=== PATIENT | female | born 1950 | race Caucasian/White ===

== ENCOUNTER → 2017-02-01 | Outpatient (CLI) | payer MEDICARE ==
--- NOTE | 2017-02-04 08:42 | MM ---
Reason for exam: screening (asymptomatic). Last mammogram was performed 1 year ago. History: Patient is postmenopausal and is nulliparous. Family history of breast cancer in paternal grandmother at age 55. Took hormonal contraceptives for 10 years beginning at age 17. Took estrogen for 4 years beginning at age 51. Took progesterone for 4 years beginning at age 51. Physical Findings: A clinical breast exam by your physician is recommended on an annual basis and results should be correlated with mammographic findings. MG 3D Screening Mammo W/Cad Bilateral CC and MLO view(s) were taken. Prior study comparison: January 30, 2016, bilateral MG 3d screening mammo w/cad. January 18, 2015, bilateral MG screening mammo w CAD. The breast tissue is heterogeneously dense. This may lower the sensitivity of mammography. No significant changes when compared with prior studies. ASSESSMENT: Benign, BI-RAD 2 RECOMMENDATION: Routine screening mammogram of both breasts in 1 year.
== END | disposition home or self-care (01) ==
LOC: RADMAMWWP 10:47
PROVIDERS: ATTEND Internal Medicine Geriatric Medicine
DX: Z12.31 Encounter for screening mammogram for malignant neoplasm of breast (principal)
CPT/HCPCS: 77063; G0202

== ENCOUNTER → 2017-09-05 | Outpatient (CLI) | payer MEDICARE ==
--- NOTE | 2017-09-05 18:33 | P.STRESS ---
- Stress Test Note Stress Test Results/Findings: Exam Performed: stress echo exercise Exam Date: 09/05/17 Reason for Exam: Chest Pain Height: 5 ft 9 in Weight: 77.111 kg Protocol: Echo Hunter Stage: 3 Duration of Exercise: 9:00 Resting Heart Rate: 64 Resting Blood Pressure: 128/79 Maximum Achieved Heart Rate: 129 Maximum Achieved Blood Pressure: 166/96 85% PMHR: 69 100% PMHR: 170 METS: 9.3 Technologist Comment: Stress Test Results/Findings: This is a 66-year-old female with history of hypertension, family history of ischemic heart disease being evaluated for symptoms of chest pain and shortness of breath. Stress data: Baseline EKG showed sinus rhythm with normal NV interval and QRS duration. Blood pressure at rest is 128/79, pulse rate of 64. Patient walked on the Hunter protocol for 9 minutes achieving a maximal heart rate of 129 with a blood pressure 166/96. EKGs taken during and after the the exercise did not reveal any changes to suggest ischemia. Echo data: Baseline echo images show normal wall motion and thickening. Exercise echo images showed augmentation of wall motion and thickening in all the segments. Final impression: #1. Negative stress test #2. Negative stress echo. #3. Patient did not experience any chest pain. #4. Occasional PVCs noticed
--- NOTE | 2017-09-09 15:41 | ECHOS ---
Stress Test Results/Findings: Exam Performed: stress echo exercise Exam Date: 09/05/17 Reason for Exam: Chest Pain Height: 5 ft 9 in Weight: 77.111 kg Protocol: Echo Hunter Stage: 3 Duration of Exercise: 9:00 Resting Heart Rate: 64 Resting Blood Pressure: 128/79 Maximum Achieved Heart Rate: 129 Maximum Achieved Blood Pressure: 166/96 85% PMHR: 69 100% PMHR: 170 METS: 9.3 Technologist Comment: Stress Test Results/Findings: This is a 66-year-old female with history of hypertension, family history of ischemic heart disease being evaluated for symptoms of chest pain and shortness of breath. Stress data: Baseline EKG showed sinus rhythm with normal VT interval and QRS duration. Blood pressure at rest is 128/79, pulse rate of 64. Patient walked on the Hunter protocol for 9 minutes achieving a maximal heart rate of 129 with a blood pressure 166/96. EKGs taken during and after the the exercise did not reveal any changes to suggest ischemia. Echo data: Baseline echo images show normal wall motion and thickening. Exercise echo images showed augmentation of wall motion and thickening in all the segments. Final impression: #1. Negative stress test #2. Negative stress echo. #3. Patient did not experience any chest pain. #4. Occasional PVCs noticed MTDD
== END | disposition home or self-care (01) ==
LOC: RADNMMAIN 09:00
PROVIDERS: ATTEND Internal Medicine Geriatric Medicine
DX: R07.9 Chest pain, unspecified (principal)
CPT/HCPCS: 93351

== ENCOUNTER → 2018-03-05 | Outpatient (CLI) | payer MEDICARE ==
--- NOTE | 2018-03-05 14:38 | BD ---
EXAMINATION TYPE: Axial Bone Density DATE OF EXAM: 03/05/2018 COMPARISON: NONE CLINICAL HISTORY: Osteoporosis per order. Postmenopausal female. Height: 5 FT 8 IN Weight: 183 FRAX RISK QUESTIONS: RISK FACTORS HISTORY OF: Surgery to Spine/Hip(right/left)/Wrist (right/left): LUMBAR FUSION When: 2016 Active: YES Postmenopausal woman: AGE 51 Take estrogen and/or progesterone medications: PT STATES SHE TOOK HRT FOR 7 YEARS NO LONGER TAKES MEDICATIONS: Additional Medications: LOSARTAN, MOTRIN, GABAPENTIN, CELEXA , Additional History: EXAM MEASUREMENTS: Bone mineral density about the R hip (g/cm2): 0.932 Bone mineral density about the L hip (g/cm2): 0.974 T Score values are as follows: -----R Neck: -0.8 -----L Neck: -0.5 -----R Total: -0.4 -----L Total: -0.5 NO PREV HERE Bone mineral density about the L Wrist (g/cm2): 0.725 T Score values are as follows: -----Dist. R+U: 0.4 -----Prox. R+U: 0.8 -----Radius total: 0.8 NO PREV HERE IMPRESSION: Normal (Values between +1 and -1 indicate normal bone mass). Consider repeating this study in 5 year s or sooner if there is some new clinical indication. NOTE: T-SCORE=SD OF THE YOUNG ADULT MEAN.
--- NOTE | 2018-03-06 12:53 | MM ---
Reason for exam: screening (asymptomatic). Last mammogram was performed 1 year and 1 month ago. History: Patient is postmenopausal and is nulliparous. Family history of breast cancer in paternal grandmother at age 55. Took hormonal contraceptives for 10 years beginning at age 17. Took estrogen for 4 years beginning at age 51. Took progesterone for 4 years beginning at age 51. Physical Findings: A clinical breast exam by your physician is recommended on an annual basis and results should be correlated with mammographic findings. MG 3D Screening Mammo W/Cad Bilateral CC, MLO, and XCCL view(s) were taken. Prior study comparison: February 01, 2017, bilateral MG 3d screening mammo w/cad. January 30, 2016, bilateral MG 3d screening mammo w/cad. The breast tissue is extremely dense which could obscure a lesion on mammography. Stable benign calcifications. There is chronic nodularity bilaterally. There is no dominant lesion. No significant changes when compared with prior studies. ASSESSMENT: Benign, BI-RAD 2 RECOMMENDATION: Routine screening mammogram of both breasts in 1 year.
== END | disposition home or self-care (01) ==
LOC: RADMAMWWP 13:19
PROVIDERS: ATTEND Internal Medicine Geriatric Medicine
DX: Z12.31 Encounter for screening mammogram for malignant neoplasm of breast (principal); Z13.820 Encounter for screening for osteoporosis
CPT/HCPCS: 77063; 77067; 77080

== ENCOUNTER → 2019-03-21 | Outpatient (CLI) | payer MEDICARE ==
--- NOTE | 2019-03-24 11:28 | MM ---
Reason for exam: screening (asymptomatic). Last mammogram was performed 1 year and 1 month ago. History: Patient is postmenopausal and is nulliparous. Family history of breast cancer in paternal grandmother at age 55. Took hormonal contraceptives for 10 years beginning at age 17. Took estrogen for 4 years beginning at age 51. Took progesterone for 4 years beginning at age 51. Physical Findings: A clinical breast exam by your physician is recommended on an annual basis and results should be correlated with mammographic findings. MG 3D Screening Mammo W/Cad Bilateral CC and MLO view(s) were taken. XCCL view(s) were taken of the right breast. Prior study comparison: March 05, 2018, bilateral MG 3d screening mammo w/cad. February 01, 2017, bilateral MG 3d screening mammo w/cad. The breast tissue is heterogeneously dense. This may lower the sensitivity of mammography. Very dense breast tissues versus underlying nodularity medial right breast also seen on the XCCL ASSISTANT REAL ESTATE MANAGER view. ASSESSMENT: Incomplete: need additional imaging evaluation, BI-RAD 0 RECOMMENDATION: Ultrasound of the right breast. [facility] will attempt to contact patient to return for ultrasound.
== END | disposition home or self-care (01) ==
LOC: RADMAMWWP 11:13
PROVIDERS: ATTEND Internal Medicine Geriatric Medicine
DX: Z12.31 Encounter for screening mammogram for malignant neoplasm of breast (principal)
CPT/HCPCS: 77063; 77067

== ENCOUNTER → 2019-03-27 | Outpatient (CLI) | payer MEDICARE ==
--- NOTE | 2019-03-27 09:24 | USB ---
Reason for exam: additional evaluation requested from abnormal screening. History: Patient is postmenopausal and is nulliparous. Family history of breast cancer in paternal grandmother at age 55. Took hormonal contraceptives for 10 years beginning at age 17. Took estrogen for 4 years beginning at age 51. Took progesterone for 4 years beginning at age 51. Physical Findings: Nurse did not find any significant physical abnormalities on exam. US Breast Workup Limited RT Right limited breast ultrasound including focal area of concern, retroareolar and axilla demonstrates no cystic or solid lesion seen. These results were verbally communicated with the patient and result sheet given to the patient on 03/27/19. ASSESSMENT: Negative, BI-RAD 1 RECOMMENDATION: Return to routine screening mammogram schedule for both breasts.
== END | disposition home or self-care (01) ==
LOC: RADUSWWP 08:23
PROVIDERS: ATTEND Internal Medicine Geriatric Medicine
DX: R92.8 Other abnormal and inconclusive findings on diagnostic imaging of breast (principal)

== ENCOUNTER → 2020-08-04 | Outpatient (CLI) | payer MEDICARE ==
--- NOTE | 2020-08-08 08:59 | MM ---
Reason for exam: screening (asymptomatic). Last mammogram was performed 1 year and 5 months ago. History: Patient is postmenopausal and is nulliparous. Family history of breast cancer in paternal grandmother at age 55. Took hormonal contraceptives for 10 years beginning at age 17. Took estrogen for 4 years beginning at age 51. Took progesterone for 4 years beginning at age 51. Physical Findings: A clinical breast exam by your physician is recommended on an annual basis and results should be correlated with mammographic findings. MG 3D Screening Mammo W/Cad Bilateral CC and MLO view(s) were taken. Prior study comparison: March 21, 2019, bilateral MG 3d screening mammo w/cad. March 05, 2018, bilateral MG 3d screening mammo w/cad. The breast tissue is extremely dense which could obscure a lesion on mammography. Stable benign calcifications. There is no discrete abnormality. No significant changes when compared with prior studies. ASSESSMENT: Benign, BI-RAD 2 RECOMMENDATION: Routine screening mammogram of both breasts in 1 year.
== END | disposition home or self-care (01) ==
LOC: RADMAMWWP 09:49
PROVIDERS: ATTEND Internal Medicine Geriatric Medicine
DX: Z12.31 Encounter for screening mammogram for malignant neoplasm of breast (principal); Z78.0 Asymptomatic menopausal state; Z80.3 Family history of malignant neoplasm of breast
CPT/HCPCS: 77063; 77067

== ENCOUNTER → 2021-07-31 | Outpatient (CLI) | payer MEDICARE ==
[2021-07-31 15:16] LABS: INR 0.9 (<1.2); Partial Thromboplastin Time 25.4 sec (22.0-30.0); Prothrombin Time 10.1 sec (9.0-12.0)
[2021-07-31 18:28] LABS: HCT 41.7 % (37.2-46.3); HGB 14.3 g/dL (12.0-15.0); MCHC 34.3 g/dL (32.0-37.0); MCV 90.5 fL (80.0-97.0); Mean Platelet Volume 9.5 fL (9.5-12.2); NRBC Per 100 WBC 0 /100 WBCS (0.0-0.0); Platelet Count 339 X 10*3/uL (140-440); RBC 4.61 X 10*6/uL (4.10-5.20); RDW 13.5 % (11.5-14.5); WBC 9.36 X 10*3/uL (4.50-10.00)
[2021-07-31 18:35] LABS: African American GFR (CKD) 101.4 (60.0-200.0); Albumin 4.7 g/dL (3.8-4.9); Albumin/Globulin Ratio 1.99 (1.60-3.17); Anion Gap 9.9 mmol/L (10.00-18.00); BUN/Creat Ratio 21.5 Ratio (12.00-20.00); Blood Urea Nitrogen 14.9 mg/dL (9.0-27.0); Calcium 9.8 mg/dL (8.7-10.3); Carbon Dioxide 27.5 mmol/L (20.0-27.5); Globulin 2.4 g/dL (1.6-3.3); Non-African American GFR(CKD) 87.5 (60.0-200.0); Potassium 5.1 mmol/L (3.5-5.5); Total Bilirubin 0.4 mg/dL (0.30-1.20); Total Protein 7.1 g/dL (6.2-8.2)
[2021-07-31 21:22] LABS: Appearance,Urine Clear (Clear); Bilirubin,Urine Negative (Negative); Blood,Urine Negative (Negative); Color,Urine Yellow (Yellow); Ketones,Urine Negative (Negative); Nitrite,Urine Negative (Negative); PH, Urine 7.5 (5.0-8.0); Specific Gravity,Urine 1.011 (1.001-1.030); Urobilinogen,Urine 0.2 (0.2,1.0)
== END | disposition home or self-care (01) ==
LOC: LABPAT 13:08
PROVIDERS: ATTEND Orthopaedic Surgery Sports Medicine
DX: Z01.812 Encounter for preprocedural laboratory examination (principal); M19.011 Primary osteoarthritis, right shoulder
CPT/HCPCS: 80053; 81003; 85027; 85610; 85730; 87070

== ENCOUNTER 2021-08-17 06:20 | Day surgery (SDC) | payer MEDICARE ==
[~2021-08-17 06:20] MED LIST: ACETAMINOPHEN TAB 500 MG TAB PO PRN; GABAPENTIN 300 MG CAP PO PRN; MELOXICAM 7.5 MG TAB PO PRN; ONDANSETRON 4 MG/2 ML VIAL IVP PRN; TRANEXAMIC ACID IN NACL,ISO-OS 1,000 MG in SALINE 1 100ML.BAG IVPB PRN
[2021-08-17] MEDS ORDERED: LIDOCAINE 1% (10MG/ML) FOR IV START INTRADERMA ONE (07:11)
[2021-08-17] MEDS ORDERED: LACTATED RINGERS 1,000 ML IV ONE ×2 (07:11→10:38)
[2021-08-17] MEDS ORDERED: ONDANSETRON 4 MG/2 ML VIAL IVP ONE (07:13)
[2021-08-17] MEDS ORDERED: DEXAMETHASONE SOD PHOSPHATE 4 MG/ML 1 ML VIAL IV ONE (07:14)
[2021-08-17] MEDS ORDERED: MIDAZOLAM 2 MG/2 ML VIAL IV ONE (07:25)
[2021-08-17] MEDS ORDERED: DEXAMETHASONE SOD PHOSPHATE 4 MG/ML 1 ML VIAL ONE (07:47)
[2021-08-17] MEDS ORDERED: GLYCOPYRROLATE 0.2 MG/ML 2 ML VIAL ONE (07:47)
[2021-08-17] MEDS ORDERED: ROCURONIUM 10 MG/ML (5 ML VIAL) IV ONE (07:47)
[2021-08-17] MEDS ORDERED: PROPOFOL 10 MG/ML 20 ML VIAL IV ONE (07:47)
[2021-08-17] MEDS ORDERED: SUCCINYLCHOLINE CHLORIDE 100 MG/5 ML SYR IV ONE (07:47)
[2021-08-17] MEDS ORDERED: NEOSTIGMINE 1 MG/ML 10 ML VIAL ONE (07:47)
[2021-08-17] MEDS ORDERED: ROPIVACAINE 5 MG/ML 30 ML VIAL ONE (07:47)
[2021-08-17] MEDS ORDERED: PHENYLEPHRINE-0.9% NACL SYG 1,000 MCG/10 ML SYRINGE ONE (07:47)
[2021-08-17] MEDS ORDERED: TRANEXAMIC ACID IN NACL,ISO-OS 1,000 MG/100 ML BAG ONE (07:47)
[2021-08-17] MEDS ORDERED: LIDOCAINE 2% INJ 20 MG/ML (2 ML VIAL) ONE (07:47)
[2021-08-17] MEDS ORDERED: VANCOMYCIN 1,000 MG VIAL MISCELLANE ONE (08:27)
[2021-08-17] MEDS ORDERED: ceFAZolin 3,000 MG in SODIUM CHLORIDE 0.9% IRRIGATIO 3,000 ML IRRIGATION ONE (08:28)
[2021-08-17] MEDS ORDERED: PROCHLORPERAZINE SUPPOSITORY 25 MG SUPP RECTAL PRN (09:49)
[2021-08-17] MEDS ORDERED: METOCLOPRAMIDE 5 MG/ML 2 ML VIAL IVP PRN (09:49)
[2021-08-17] MEDS ORDERED: HYDROmorphone 0.5 MG/0.5 ML SYRINGE IVP PRN ×2 (09:49)
[2021-08-17] MEDS ORDERED: ONDANSETRON 4 MG/2 ML VIAL IVP PRN (09:49)
[2021-08-17] MEDS ORDERED: HYDROcodone/APAP 7.5-325MG 1 EACH TAB PO PRN (09:53)
--- NOTE | 2021-08-17 10:18 | XR ---
EXAMINATION TYPE: XR shoulder limited RT DATE OF EXAM: 08/17/2021 CLINICAL HISTORY: Right shoulder pain. TECHNIQUE: Single frontal postoperative view right shoulder is obtained. COMPARISON: None. FINDINGS: Metallic hardware from reverse right shoulder total arthroplasty is identified. Position is felt satisfactory. There is evidence of recent surgery with subcutaneous air superiorly and percutan eous drainage catheter noted. IMPRESSION: As above.
[2021-08-17] MEDS ORDERED: HYDROmorphone 0.5 MG/0.5 ML SYRINGE IVP ONE (10:33)
--- NOTE | 2021-08-17 10:51 | OP ---
OPERATIVE REPORT DATE OF PROCEDURE: 08/17/2021. SURGEON: Jordan Razo MD. TRANSPORTATION MAINTENANCE SUPERVISOR: Yunior VARGAS. PREOPERATIVE DIAGNOSIS: Right shoulder advanced rotator cuff arthropathy. POSTOPERATIVE DIAGNOSIS: Right shoulder advanced rotator cuff arthropathy. OPERATION: Right reverse total shoulder arthroplasty. ANESTHESIA: General endotracheal. ESTIMATED BLOOD LOSS: 200 mL. DRAINS: One deep drain. COMPLICATIONS: None apparent. DISPOSITION: Postanesthesia care unit. INDICATIONS: Bere is a very pleasant 70-year-old female with longstanding right shoulder pain. Workup including x-rays, MRI revealed massive irreparable rotator cuff tear as well as early osteoarthrosis of the right shoulder. At this point, it was felt that she has failed conservative management. She would like to proceed with operative intervention. Risks of procedure were discussed with her in detail. These risks include, but are not limited to risk of infection, nerve damage, bleeding, pain, instability in the shoulder, loosening of the implants and deep infection. There is also small risk of deep vein thrombosis which could lead to fatal pulmonary embolism. The patient understands the risks. All of her questions were answered with regard to the procedure. Risks of procedure were answered to her satisfaction. Appropriate informed consent was obtained. DESCRIPTION OF THE PROCEDURE: The patient was identified in preoperative holding area. Surgical site was marked by both the patient and myself. She was given 2 grams of Ancef for IV prophylactic purposes. She was then transferred to the operative suite. She was placed supine on the operating room table. A general anesthetic was then administered and dosed per the anesthesia without apparent complication. Examination under anesthesia was then performed to the right shoulder. She had elevation to 140 degrees. External rotation at the side was to 50 degrees. The patient was then placed into the beach chair position well-padded in preparation for surgery. Great care was taken to ensure that her cervical spine is in neutral alignment well-padded and maintained that way throughout the operative procedure. Great care was also taken to ensure that her legs were appropriately padded as well. The patient's right upper extremity was then prepped and draped in usual sterile fashion. Standard surgical pause undertaken to ensure that we were operating on the correct site and that appropriate preoperative antibiotics were given. All staff in room in agreement and we proceeded. The acromion AC joint clavicle and coracoid were marked with a surgical pen. A planned incision starting at the level of the clavicle and extending distally over the deltopectoral interval approximately 1 cm lateral to the coracoid was marked with a surgical pen. The incision was then made with a 10 blade scalpel. Dissection was carried down sharply to the deltoid fascia. The deltopectoral interval was identified at the level of clavicle. A small band retractor was then placed onto the proximal deltoid. I then released the deltoid fascia on the lateral aspect of the cephalic vein. The cephalic vein was preserved and left in its bed medially. The cephalic vein was protected throughout the entire case. I then identified the clavipectoral fascia. This was incised proximally at the level of the coracoacromial ligament. The coracoacromial ligament was left intact. I then used my finger to spread the interval between the conjoined tendon and the subscapularis. I felt for the axillary nerve which was readily palpable. I then cleared the subacromial and subdeltoid spaces of bursal and scar tissue. There was extensive amount of bursal and scar tissue in the subacromial and subdeltoid spaces. I then utilized a Ruiz retractor to hold the deltoid and expose the humeral head. Of note, there was no supraspinatus or infraspinatus attachment to the humeral head. The superior aspect of the subscapularis also had been chronically torn and retracted as well. I then proceeded with release of the remaining subscapularis in the anterior inferior shoulder capsule. The course of the biceps tendon was also identified. I then tenodesed the biceps into the soft tissue at the superior aspect of the pectoralis tendon. I then proceeded to release the subscapularis and anterior inferior shoulder capsule. The subscapularis and capsule released intratendinous. The subscapularis and capsule release extended distally in a lazy-S fashion. This was approximately 1 cm medial to the biceps tendon. I then continued to release the capsule along the inferior neck in a vertical fashion to approximately the 6 o'clock position. Great care was taken to ensure the capsule was always visualized as it was released as to avoid injuring the axillary nerve. I then brought the Purvis maintenance department manager with the arm externally rotated and abducted. I continued to release the capsule inferomedially to approximately the 4 o'clock position. The inferior osteophytes were then removed as well. This was done with a rongeur. I then proceeded with preparation of the humerus. I removed all the goat's meléndez osteophytes. I then removed the subchondral plate from the superior aspect of the humeral head utilizing a rongeur. I then used the starting reamer to gain access to the humeral canal. This was 1 cm medial to the prior rotator cuff insertion and 1 cm posterior to the bicipital groove. I then prepared the humeral canal with hand reaming. I started with a 6 mm reamer and incrementally increased until firm resistance was encountered at 11 mm. The reamer handle was then left in place. I then utilized a humeral resection guide. This was set at 30 degrees of retrotorsion. The cutting block was then set at the insertion of the prior insertion of the rotator cuff. I then proceeded to osteotomize the humeral head with an oscillating saw. I then removed the resection guide and then completed the osteotomy. I then proceeded with trial stem placement. I then broached the canal starting with a 6 mm broach and incrementally increased up to an 11 mm broach. The 11 mm trial stem was then left in place. At this point, a bone hook was then used to pull the humerus out laterally. I then inspected the joint for any loose bodies. Again the rotator cuff was completely chronically torn and retracted. The Battman retractor was then placed on the posterior glenoid rim. The arm was then placed approximately 80 degrees of abduction and in slight flexion on a Purvis stand. I then proceeded to remove the hypertrophic labrum to definitively identify the actual glenoid. I then utilized the mini base plate guide. The central pin was then placed in the center of the glenoid with approximately 10 degrees of inferior tilt. I then proceeded to ream the glenoid. This was done with the mini base plate reamer. Reamer was taken down as minimal as possible as to preserve as much the subchondral bone as possible. I then placed the mini base plate. This was impacted into the glenoid. The starting pin was then removed. I then placed a 30 mm central screw. This screw had excellent purchase in bone. I was able to rotate the scapula through the screwdriver once it was fully seated. I then proceeded to place the peripheral locking screws. The inferior locking screw was a 25 mm screw. The anterior posterior and superior screws were 15 mm locking screws. I then had the representative government relations open a size 36 glenoid sphere. It was slightly offset as to influence it inferiorly to avoid scapular notching. The Rodriguez taper was dried and then the real glenoid sphere was then impacted onto a dry Rodriguez taper of the base plate. I then proceeded with trial reduction. A standard tray and a standard poly was then placed. The shoulder was reduced. It was a fairly difficult reduction. It was stable throughout a full range of motion. The conjoined tendon did not have any undue tension. I made the decision to proceed with the standard tray and standard poly. The shoulder was then carefully redislocated. The trial humeral components were all removed. The wound was thoroughly irrigated with sterile saline solution with antibiotic added via pulse lavage. I also used the chlorhexidine wash at this time. I then had the representative government relations open an 11 mm Biomet mini stem, a standard tray and a standard poly. The real stem was then impacted into the proximal humerus in approximately 30 degrees of retrotorsion. The Rodriguez taper was dried and then the base plate and polyethylene were then impacted onto a dry Rodriguez taper. The shoulder was then reduced. Again it was a mildly difficult reduction. It was very stable. The shoulder was taken through full range of motion. It was stable throughout full range of motion. There was no impingement. The conjoined tendon did not have any undue tension. At this point, I did feel for the axillary nerve which was readily palpable and uninjured. We then proceeded with closure. Again, the wound was thoroughly irrigated with sterile saline solution with antibiotic added via pulse lavage. Again, we used the remaining chlorhexidine wash. Approximately 500 mg of vancomycin powder was then placed deep. A drain was also placed deep and brought out superiorly away from the incision. The deltopectoral interval was then closed with interrupted 0-Vicryl interrupted suture. The subcutaneous tissue was again irrigated with sterile saline solution via pulse lavage. The remaining 500 mg of vancomycin powder was placed subcutaneously. The subcutaneous tissue was then closed with 2-0 Vicryl interrupted suture. The skin was closed with a running 3-0 Quill suture. Dermabond was applied to the incision. A sterile compressive dressing was applied. The patient's right upper extremity was placed into a standard sling. All sponge and needle counts were deemed correct prior to closure. The patient tolerated the procedure without apparent complication. She was transferred to recovery room in stable condition. MMODL / IJN: [id number] /
[2021-08-17] MEDS: HYDROmorphone 0.5 MG/0.5 ML SYRINGE IVP PRN (10:59)
[2021-08-17 14:55] VITALS: RESP 18
[2021-08-17] MEDS: LACTATED RINGERS 1,000 ML IV SCH ×2 (16:37→20:30)
--- NOTE | 2021-08-17 19:17 | P.ANPRN ---
Procedure Note - Anesthesia - Nerve Block Performed Right Interscalene Single Time Out Performed: Yes Date of Procedure: 08/17/21 Procedure Start Time: :25 Procedure Stop Time: :30 Location of Patient: PreOp Indication: Acute Post-Operative Pain, Requested by Surgeon Sedation Type: Sedate with meaningful contact maintained Preparation: Sterile Prep Position: Supine Needle Types: Pajunk Needle Gauge: 21 Ultrasound used to visualize needle placement: Yes Ultrasound used to observe medication spread: Yes Blood Aspirated: No Pain Paresthesia on Injection Noted: No Resistance on Injection: Normal Image Stored and Saved: Yes Events: Uneventful and Well Tolerated (ropi .5% 20cc plus dexamethasone 4mg)
[2021-08-17] MEDS: BENZOCAINE/MENTHOL LOZENG 1 EACH LOZENGE MUCOUS MEM PRN (20:40)
[2021-08-17] MEDS ORDERED: diphenhydrAMINE 25 MG CAP PO PRN (21:00)
[2021-08-17] MEDS ORDERED: SENNOSIDES-DOCUSATE SODIUM 1 EACH TAB PO PRN (21:00)
[2021-08-17] MEDS ORDERED: diazePAM 5 MG TAB PO SCH (21:00)
[2021-08-17] MEDS ORDERED: GABAPENTIN 300 MG CAP PO SCH (21:00)
--- NOTE | 2021-08-18 00:18 | P.CONS ---
History of Present Illness - Reason for Consult Consult date: 08/17/21 medical management, hypertension, hyperlipidemia Requesting physician: Jordan Razo - Chief Complaint Right reverse total shoulder arthroplasty - History of Present Illness HISTORY OF PRESENT ILLNESS 70-year-old white male my office patient who has past medical history of hypertension, hyperlipidemia, chronic lower back pain, mild anxiety who had suffered from severe right shoulder pain for the last 2 years with much worsening symptom was diagnosed earlier with torn rotator cuff cough, apparently her symptoms has been quite bed had failed conservative management. She seen Dr. Razo had physical therapy and cortisone injection without much help. MRI of the shoulder was done and showed torn rotator cuff severe advanced arthritis with. And retraction of the long head of the biceps tendon with the proximal biceps muscle edema, glenohumeral arthrosis with proximal migration of the humeral head and superior labral fraying, large glenohumeral joint effusion with diffuse synovitis, large high-grade and near complete tear of the central deltoid muscle about the acromial attachment. Patient ended up point was scheduled for a irrepairable rotator cuff tear and scheduled for elective reverse right shoulder arthroplasty.she had her surgery today successfully had nerve block still have drainage tube and had had a shoulder sling was admitted to the hospital afterward. Pain is under control patient is stable hemodynamically. REVIEW OF SYSTEMS Constitutional: No fever, no chills, no night sweats. No weight change. No weakness, fatigue or lethargy. No daytime sleepiness. EENT: No headache. No blurred vision or double vision, no loss of vision. No loss of Hearing, no ringing in the ears, no dizziness. No nasal drainage or congestion. No epistaxis. No sore throat. Lungs: No shortness of breath, cough, no sputum production. No wheezing. Cardiovascular: No chest pain, no lower extremity edema. No palpitations. No paroxysmal nocturnal dyspnea. No orthopnea. No lightheadedness or dizziness. No syncopal episodes. Abdominal: No abdominal pain. No nausea, vomiting. No diarrhea. No cons tipation. No bloody or tarry stools.. No loss of appetite. Genitourinary: No dysuria, increased frequency, urgency. No urinary retention. Musculoskeletal: Generalized muscle pain and joint pain with lower back pain and right shoulder pain and bilateral hip discomfort. Integumentary: No wounds, no lesions. No rash or pruritus. No unusual bruising. No change in hair or nails. Neurologic: No aphasia. No facial droop. No change in mentation. No head injury. No headache. No paralysis. No paresthesia. Psychiatric: No depression. No anxiety. No mood swings. Endocrine: No abnormal blood sugars. No weight change. No excessive sweating or thirst. No cold intolerance. SOCIAL HISTORY she does not smoke, drinks alcohol socially, she has been retired live with her been independent. FAMILY HISTORY both parents dying in their late 80s mother from atherosclerotic heart disease and severe osteoporosis, father from advanced dementia and atherosclerotic heart disease, patient had 2 children with no major medical problem. PHYSICAL EXAMINATION Gen: This is well-developed laying in bed in no acute respiratory distress. HEENT: Head is atraumatic, normocephalic. Pupils equal, round. Sclerae is anicteric. NECK: Supple. No JVD. No lymphadenopathy. No thyromegaly. LUNGS: Clear to auscultation. No wheezes or rhonchi. No intercostal retractions. HEART: Regular rate and rhythm. No murmur. ABDOMEN: Soft. Bowel sounds are present. No masses. No tenderness. EXTREMITIES: No pedal edema. No calf tenderness.right shoulder incision looks fine shoulder still in sling has drainage tube has been draining some blood. NEUROLOGICAL: Patient is awake, alert and oriented x3. Cranial nerves 2 through 12 are grossly intact. ASSESSMENT AND PLAN 1.post right shoulder reverse arthroplasty, stable and doing well with surgery continue home meds, GI, DVT and pulmonary prophylaxis, pain and pain management would be watch in the next 24 hours. 2 hypertension: Has been on Benicar 40/12.5 mg daily continue medication. 3 severe neuropathy: Continue gabapentin 600 mg daily. 4 hyperlipidemia: Has been on diet control no medication at this point. 5 severe chronic ALLERGY: Has been on decongestant medication along with Flonase nasal spray. Also patient has been using rescue inhaler for reactive airway caused by ALLERGY as well. 6 chronic lower back pain post lower back surgery, patient has been off any narcotics still only on gabapentin using ibuprofen on an as-needed basis. 7 chronic dizziness with abnormal balance and gait was diagnosed as vestibulopathy has been on meclizine on an as-needed basis. 8 chronic depression: Has been on citalopram 20 mg a day. 9 DVT prophylaxis: Early mobilization and knee-high JEFFREY hose. 10 GI prophylaxis: Patient be on Pepcid 20 mg daily. CODE STATUS: Full code. Dr. Razo thank you very much for the consult she can be any further help to please let me know. Past Medical History Past Medical History: Hypertension, Osteoarthritis (OA) Additional Past Medical History / Comment(s): STATES SHE BROKE HER TOE, IN A SHOE BOOT, UNKNOWN WHICH TOE. History of Any Multi-Drug Resistant Organisms: None Reported Past Surgical History: Joint Replacement Additional Past Surgical History / Comment(s): RIGHT KNEE ARTHROPLASTY. L4-5 FUSION. SINUS SURGERY. OOPERECTOMY Past Anesthesia/Blood Transfusion Reactions: Motion Sickness Past Psychological History: Anxiety, Depression Smoking Status: Never smoker Past Alcohol Use History: Occasional Past Drug Use History: None Reported - Past Family History Mother Family Medical History: No Reported History Medications and Allergies Home Medications Medication Instructions Recorded Confirmed Type Citalopram Hydrobromide 20 mg PO PC-LUNCH 08/15/21 08/17/21 History Diazepam [Valium] 10 mg PO HS 08/15/21 08/17/21 History Gabapentin 600 mg PO HS 08/15/21 08/17/21 History Meloxicam 7.5 mg PO BID 08/15/21 08/17/21 History Olmesartan/Hydrochlorothiazide 1 tab PO QAM 08/15/21 08/17/21 History [Olmesartan-Hctz 40-12.5 mg Tab] traMADol HCL 50 mg PO DAILY 08/15/21 08/17/21 History Docusate [Colace] 100 mg PO BID #60 capsule 08/17/21 Rx Doxycycline Hyclate 100 mg PO BID #10 tab 08/17/21 Rx HYDROcodone/APAP 7.5-325MG [[place] 1 - 2 each PO Q6HR PRN #42 tab 08/17/21 Rx 7.5-325] Allergies Allergy/AdvReac Type Severity Reaction Status Date / Time No Known Allergies Allergy Verified 08/17/21 06:49 Physical Exam Vitals: Vital Signs Temp Pulse Pulse Resp BP BP Pulse Ox 08/17/21 13:38 97.5 F L 67 18 148/95 95 08/17/21 13:00 68 16 130/70 99 08/17/21 12:30 67 16 131/65 99 08/17/21 12:00 67 16 123/68 99 08/17/21 11:46 71 16 124/67 99 08/17/21 11:30 62 16 121/67 99 08/17/21 11:16 66 16 118/69 99 08/17/21 11:02 58 L 16 121/69 99 08/17/21 10:45 58 L 16 122/69 99 08/17/21 10:31 58 L 16 121/70 99 08/17/21 10:16 52 L 16 121/65 99 08/17/21 10:00 59 L 16 134/68 99 08/17/21 09:46 97 F L 71 15 135/71 99 08/17/21 07:34 62 16 158/89 98 08/17/21 06:56 97.9 F 66 18 167/87 97 Intake and Output 08/17/21 08/17/21 08/17/21 06:59 14:59 22:59 Intake Total 851 650 Output Total 200 Balance 651 650 Intake: IV 851 Intake, IV Titration 650 Amount Lactated Ringers 1,000 ml 600 @ 100 mls/hr IV .Q10H [facility] Rx#:[id number] ceFAZolin 2 gm In Sodium 50 Chloride 0.9% 50 ml @ 100 mls/hr IVPB Q8HR [facility] Rx# :[id number] Output: Estimated Blood Loss 200 Other: # Voids 2 Weight 85.9 kg 85.9 kg
[2021-08-18] MEDS: BENZOCAINE/MENTHOL LOZENG 1 EACH LOZENGE MUCOUS MEM PRN ×2 (01:16→06:16)
[2021-08-18] MEDS: LACTATED RINGERS 1,000 ML IV SCH (05:43)
[2021-08-18] MEDS: HYDROmorphone 0.5 MG/0.5 ML SYRINGE IVP PRN (06:12)
[2021-08-18] MEDS: HYDROcodone/APAP 7.5-325MG 1 EACH TAB PO PRN ×2 (06:54→08:47)
[2021-08-18 07:14] VITALS: BP 137/80; PULSE 71; TEMP 98.2
[2021-08-18] MEDS ORDERED: hydroCHLOROthiazide 12.5 MG CAP PO SCH (09:00)
[2021-08-18] MEDS ORDERED: LOSARTAN 50 MG TAB PO SCH (09:00)
[2021-08-18 09:14] LABS: Basophils # (A) 0.03 X 10*3/uL (0.00-0.10); Basophils % (A) 0.2 %; Eosinophils # (A) 0.01 X 10*3/uL (0.04-0.35); Eosinophils % (A) 0.1 %; HCT 36.3 % (37.2-46.3); HGB 11.8 g/dL (12.0-15.0); Immature Grans, Automated 0.5 %; Lymphocytes # (A) 2.15 X 10*3/uL (0.90-5.00); Lymphocytes % (A) 16.1 %; MCH 29.6 pg (27.0-32.0); MCHC 32.5 g/dL (32.0-37.0); Mean Platelet Volume 9.6 fL (9.5-12.2); Monocytes # (A) 1.38 X 10*3/uL (0.20-1.00); Monocytes % (A) 10.3 %; NRBC Per 100 WBC 0 /100 WBCS (0.0-0.0); Neutrophils % (A) 72.8 %; Platelet Count 298 X 10*3/uL (140-440); RBC 3.99 X 10*6/uL (4.10-5.20); RDW 13.4 % (11.5-14.5); WBC 13.34 X 10*3/uL (4.50-10.00)
--- NOTE | 2021-08-18 10:42 | P.DS ---
Providers Expected date of discharge: 08/18/21 Attending physician: Jordan Razo Consults: 08/17/21 09:49 Consult Physician Routine Consulting Provider: Ezra Lloyd Reason/Comments: post op medical management Do you want consulting provider notified?: Yes Primary care physician: Ezra Lloyd - Discharge Diagnosis(es) (1) Osteoarthritis of right shoulder Patient was admitted to the OR on 08/17/21 to undergo a reverse right total shoulder arthroplasty. She had failed conservative measures as an outpatient and desired to proceed with elective surgery after given informed consent. She un derwent the above procedure which she tolerated well without complication. Postoperative hospital course has remained without complication. On day of discharge she is afebrile, vital signs stable, labs within acceptable ranges, tolerating by mouth meds and diet, voiding without difficulty, positive flatus, denies abdominal pain or calf pain, pain is controlled on oral pain medication and has no new complaints. Wound is benign, neurovascular status is intact, calves are soft and nontender, abdomen soft and nontender. Review of systems is negative for numbness, tingling, fever, chills, chest pain, shortness of breath, nausea, vomiting, dizziness, headaches, slurred speech or other. Current Visit: Yes Status: Acute Priority: Medium Procedures: Reverse right total shoulder arthroplasty Patient Condition at Discharge: Good Plan - Discharge Summary Discharge Rx Participant: Yes New Discharge Prescriptions: New Doxycycline Hyclate 100 mg PO BID #10 tab HYDROcodone/APAP 7.5-325MG [[place] 7.5-325] 1 - 2 each PO Q6HR PRN #42 tab PRN Reason: Pain Docusate [Colace] 100 mg PO BID #60 capsule Continue Olmesartan/Hydrochlorothiazide [Olmesartan-Hctz 40-12.5 mg Tab] 1 tab PO QAM Gabapentin 600 mg PO HS traMADol HCL 50 mg PO DAILY Meloxicam 7.5 mg PO BID Diazepam [Valium] 10 mg PO HS Citalopram Hydrobromide 20 mg PO PC-LUNCH Discharge Medication List Citalopram Hydrobromide 20 mg PO PC-LUNCH 08/15/21 [History] Diazepam [Valium] 10 mg PO HS 08/15/21 [History] Gabapentin 600 mg PO HS 08/15/21 [History] Meloxicam 7.5 mg PO BID 08/15/21 [History] Olmesartan/Hydrochlorothiazide [Olmesartan-Hctz 40-12.5 mg Tab] 1 tab PO QAM 08/15/21 [History] traMADol HCL 50 mg PO DAILY 08/15/21 [History] Docusate [Colace] 100 mg PO BID #60 capsule 08/17/21 [Rx] Doxycycline Hyclate 100 mg PO BID #10 tab 08/17/21 [Rx] HYDROcodone/APAP 7.5-325MG [[place] 7.5-325] 1 - 2 each PO Q6HR PRN #42 tab 08/17/21 [Rx] Follow up Appointment(s)/Referral(s): Ezra Lloyd MD [Primary Care Provider] - 1 Week Jordan Razo MD [STAFF PHYSICIAN] - 10 Days Activity/Diet/Wound Care/Special Instructions: maintain sling take meds as directed keep wound clean and dry f/u in office Discharge Disposition: HOME SELF-CARE
--- NOTE | 2021-08-18 13:14 | P.PN ---
Subjective Progress Note Date: 08/18/21 HISTORY OF PRESENT ILLNESS 70-year-old white male my office patient who has past medical history of hypertension, hyperlipidemia, chronic lower back pain, mild anxiety who had suff ered from severe right shoulder pain for the last 2 years with much worsening symptom was diagnosed earlier with torn rotator cuff cough, apparently her symptoms has been quite bed had failed conservative management. She seen Dr. Razo had physical therapy and cortisone injection without much help. MRI of the shoulder was done and showed torn rotator cuff severe advanced arthritis with. And retraction of the long head of the biceps tendon with the proximal biceps muscle edema, glenohumeral arthrosis with proximal migration of the humeral head and superior labral fraying, large glenohumeral joint effusion with diffuse synovitis, large high-grade and near complete tear of the central delto id muscle about the acromial attachment. Patient ended up point was scheduled for a irrepairable rotator cuff tear and scheduled for elective reverse right shoulder arthroplasty.she had her surgery today successfully had nerve block still have drainage tube and had had a shoulder sling was admitted to the hospital afterward. Pain is under control patient is stable hemodynamically. 08/18: Patient states she was unable to sleep well during the night due to back discomfort from the bed. Pain in the right shoulder is controlled. She is anticipating discharge home later today. Medication reconciliation will be reviewed for home. She has been afebrile, heart rate 83, blood pressure 142/89 and pulse ox 97% on room air. Creatinine 0.84 and vancomycin 16.1. REVIEW OF SYSTEMS Constitutional: No fever, no chills, no night sweats. No weight change. No weakness, fatigue or lethargy. No daytime sleepiness. EENT: No headache. No blurred vision or double vision, no loss of vision. No loss of Hearing, no ringing in the ears, no dizziness. No nasal drainage or c ongestion. No epistaxis. No sore throat. Lungs: No shortness of breath, cough, no sputum production. No wheezing. Cardiovascular: No chest pain, no lower extremity edema. No palpitations. No paroxysmal nocturnal dyspnea. No orthopnea. No lightheadedness or dizziness. No syncopal episodes. Abdominal: No abdominal pain. No nausea, vomiting. No diarrhea. No constipation. No bloody or tarry stools.. No loss of appetite. Genitourinary: No dysuria, increased frequency, urgency. No urinary retention. Musculoskeletal: Generalized muscle pain and joint pain with lower back pain and right shoulder pain and bilateral hip discomfort. Integumentary: No wounds, no lesions. No rash or pruritus. No unusual bruising. No change in hair or nails. Neurologic: No aphasia. No facial droop. No change in mentation. No head injury. No headache. No paralysis. No paresthesia. Psychiatric: No depression. No anxiety. No mood swings. Endocrine: No abnormal blood sugars. No weight change. No excessive sweating or thirst. No cold intolerance. PHYSICAL EXAMINATION Gen: This is well-developed laying in bed in no acute respiratory distress. HEENT: Head is atraumatic, normocephalic. Pupils equal, round. Sclerae is anicteric. NECK: Supple. No JVD. No lymphadenopathy. No thyromegaly. LUNGS: Clear to auscultation. No wheezes or rhonchi. No intercostal retractions . HEART: Regular rate and rhythm. No murmur. ABDOMEN: Soft. Bowel sounds are present. No masses. No tenderness. EXTREMITIES: No pedal edema. No calf tenderness.right shoulder incision looks fine shoulder still in sling has drainage tube has been draining some blood. NEUROLOGICAL: Patient is awake, alert and oriented x3. Cranial nerves 2 through 12 are grossly intact. ASSESSMENT AND PLAN 1.post right shoulder reverse arthroplasty, stable and doing well with surgery continue home meds, GI, DVT and pulmonary prophylaxis, pain and pain management would be watch in the next 24 hours. 2 hypertension: Has been on Benicar 40/12.5 mg daily continue medication. 3 severe neuropathy: Continue gabapentin 600 mg daily. 4 hyperlipidemia: Has been on diet control no medication at this point. 5 severe chronic ALLERGY: Has been on decongestant medication along with Flonase nasal spray. Also patient has been using rescue inhaler for reactive airway caused by ALLERGY as well. 6 chronic lower back pain post lower back surgery, patient has been off any narcotics still only on gabapentin using ibuprofen on an as-needed basis. 7 chronic dizziness with abnormal balance and gait was diagnosed as vestibulopathy has been on meclizine on an as-needed basis. 8 chronic depression: Has been on citalopram 20 mg a day. 9 DVT prophylaxis: Early mobilization and knee-high JEFFREY hose. 10 GI prophylaxis: Patient be on Pepcid 20 mg daily. CODE STATUS: Full code. Dr. Razo thank you very much for the consult she can be any further help to please let me know. DISCHARGE PLAN Home Impression and plan of care have been directed as dictated by the signing physician. Kendra Mendez nurse practitioner acting as scribe for signing physician. Objective - Vital Signs Vital signs: Vital Signs Temp 98.2 F 08/18/21 07:14 Pulse 71 08/18/21 07:14 Resp 18 08/18/21 07:14 BP 137/80 08/18/21 07:14 Pulse Ox 92 L 08/18/21 07:14 FiO2 Intake & Output 08/17/21 08/18/21 08/18/21 18:59 06:59 18:59 Intake Total 1741 Output Total 200 880 Balance 1541 -880 Weight 85.9 kg Intake: IV 851 Intake, IV Titration 650 Amount Lactated Ringers 1,000 ml 600 @ 100 mls/hr IV .Q10H [facility] Rx#:[id number] ceFAZolin 2 gm In Sodium 50 Chloride 0.9% 50 ml @ 100 mls/hr IVPB Q8HR [facility] Rx# :[id number] Oral 240 Output: Drainage 80 Right Shoulder 80 Urine 800 Estimated Blood Loss 200 Other: Voiding Method External Catheter # Voids 2 - Labs CBC & Chem 7: 08/18/21 05:38
[2021-08-18] MEDS ORDERED: CITALOPRAM HYDROBROMIDE 20 MG TAB PO SCH (13:30)
== END 2021-08-18 11:08 | disposition home or self-care (01) ==
LOC: OR 06:20 → 4SSUR 09:37 → OR 08-18 11:08
PROVIDERS: ATTEND Orthopaedic Surgery Sports Medicine
DX: M12.811 Other specific arthropathies, not elsewhere classified, right shoulder (principal); M25.711 Osteophyte, right shoulder; I10 Essential (primary) hypertension; R45.0 Nervousness; R63.5 Abnormal weight gain; G89.29 Other chronic pain; M54.50 Low back pain, unspecified; E78.5 Hyperlipidemia, unspecified; Z82.49 Family history of ischemic heart disease and other diseases of the circulatory system; F41.9 Anxiety disorder, unspecified; F32.A Depression, unspecified; Z98.890 Other specified postprocedural states; Z96.651 Presence of right artificial knee joint; Z98.1 Arthrodesis status; Z79.1 Long term (current) use of non-steroidal anti-inflammatories (NSAID); Z79.891 Long term (current) use of opiate analgesic; Z79.899 Other long term (current) drug therapy
CPT/HCPCS: 23472; 64415; 76942; 85025; 73020; C1776; J2250; J3370; J1100; J2710; J0690 ×2; J2405; J2795; J2370; J0330; J2704; J1170 ×2; J2001

== ENCOUNTER → 2021-10-17 | Outpatient (CLI) | payer MEDICARE ==
--- NOTE | 2021-10-18 19:54 | MM ---
Reason for Exam: Screening (asymptomatic). Last mammogram was performed 1 year(s) and 3 month(s) ago. Patient History: Menarche at age 11. Patient has no children. Left ovary removed at age 44. Postmenopausal. Estrogen, starting at age 51 for 4 years. Progesterone, starting at age 51 for 4 years. Hormonal Contraceptives for 10 years from age 17 until age 27. Paternal grandmother had breast cancer, age 55. Paternal aunt had breast cancer, age 78. Risk Values: [place] 5 year model risk: 1.9%. NCI Lifetime model risk: 5.4%. Prior Study Comparison: 12/25/2012 Bilateral Screening Mammogram, [facility]. 12/28/2013 Bilateral Screening Mammogram, [facility]. 03/05/2018 Bilateral Screening Mammogram, [facility]. 03/21/2019 Bilateral Screening Mammogram, [facility]. 08/04/2020 Bilateral Screening Mammogram, [facility]. Tissue Density: The breast tissue is heterogeneously dense. This may lower the sensitivity of mammography. Findings: Analyzed By CAD. Scattered benign round calcifications are redemonstrated. Focal asymmetric density in the central inferior left MLO view at a middle depth appears more defined especially on 3-D images but may represent superimposition shadow. Further evaluation recommended. Otherwise, no significant change. Overall Assessment: Incomplete: need additional imaging evaluation, BI-RAD 0 Management: Special View Mammogram of the left breast. To include spot 3-D CC, spot 3-D MLO, and 3-D LM views. Targeted left breast ultrasound if any persisting abnormality. Electronically signed and approved by: Francis White M.D. Radiologist
== END | disposition home or self-care (01) ==
LOC: RADMAMWWP 10:15
PROVIDERS: ATTEND Internal Medicine Geriatric Medicine
DX: Z12.31 Encounter for screening mammogram for malignant neoplasm of breast (principal); Z78.0 Asymptomatic menopausal state; Z80.3 Family history of malignant neoplasm of breast
CPT/HCPCS: 77063; 77067

== ENCOUNTER → 2021-10-20 | Outpatient (CLI) | payer MEDICARE ==
--- NOTE | 2021-10-30 07:02 | MM ---
Reason for Exam: Additional evaluation requested from abnormal screening. Last screening mammogram was performed less than 1 month ago. Patient History: Menarche at age 11. Patient has no children. Left ovary removed at age 44. Postmenopausal. Estrogen, starting at age 51 for 4 years. Progesterone, starting at age 51 for 4 years. Hormonal Contraceptives for 10 years from age 17 until age 27. Paternal grandmother had breast cancer, age 55. Paternal aunt had breast cancer, age 78. Risk Values: [place] 5 year model risk: 1.9%. NCI Lifetime model risk: 5.4%. Prior Study Comparison: 03/21/2019 Bilateral Screening Mammogram, [facility]. 08/04/2020 Bilateral Screening Mammogram, [facility]. 10/17/2021 Bilateral MG 3D screening mammo w/cad, [facility]. Tissue Density: Left: The breast tissue is extremely dense which could obscure a lesion on mammography. Findings: Analyzed By CAD. Asymmetric prominent tissue anterior to the inferior left breast is not really changed back through 2018 tomogram views on the additional views provided today. Overall Assessment: Negative, BI-RAD 1 Management: Screening Mammogram of both breasts in 1 year. Back on schedule. Results were given to the patient verbally at the time of exam. Electronically signed and approved by: Mark Wheeler M.D.
== END | disposition home or self-care (01) ==
LOC: RADMAMWWP 13:40
PROVIDERS: ATTEND Internal Medicine Geriatric Medicine
DX: R92.8 Other abnormal and inconclusive findings on diagnostic imaging of breast (principal); Z78.0 Asymptomatic menopausal state; Z80.3 Family history of malignant neoplasm of breast
CPT/HCPCS: 77065; G0279; 77061

== ENCOUNTER → 2023-01-29 | Outpatient (CLI) | payer MEDICARE ==
--- NOTE | 2023-02-02 10:21 | MR ---
EXAMINATION TYPE: MR lumbar spine wo/w con DATE OF EXAM: 01/29/2023 6:11 PM CLINICAL INDICATION:Female, 72 years old with history of M54.16 RADICULOPATHY, LUMBAR REGION; PHH, Lo w back pain into left leg with weakness, Hx back surgery 2016, COMPARISON: None TECHNIQUE: Multi planar, multi sequence imaging was performed utilizing: T1-weighted, T2-weighted, a nd turbo inversion recovery imaging of the lumbar spine. IV Contrast: 7 cc Gadavist. (None if empty) FINDINGS: Alignment: The lumbar vertebral bodies have preserved heights with grade 1 anterolisthesis of L4 on L 5. Cord: The conus medullaris and the distal spinal cord appear unremarkable with regards to their signa l intensity and morphology. Bones/Discs: Postsurgical changes to the spine at L5 4 L5. Hardware limits evaluation at these levels . In the remainder of the spine demonstrates disc desiccation, disc space, osteophytes, facet joint a rthropathy. There is some recommended edema along the adjoining endplates most pronounced at L2-L3. T12-L1: No evidence of significant spinal canal stenosis or neural foraminal stenosis. L1-L2: Disc bulge and facet joint arthropathy result in mild spinal canal and moderate bilateral neur al foraminal stenosis. L2-L3: Disc bulge and facet joint arthropathy result in mild to moderate spinal canal and moderate bi lateral neural foraminal stenosis. L3-L4: Left foraminal disc extrusion which impresses upon the exiting and forming nerves. There is thompson perior migration of 10 mm of disc material. Facet joint arthropathy result in mild to moderate spinal canal and moderate bilateral neural foraminal stenosis. L4-L5: Disc uncovering from grade 1 anterolisthesis and facet joint arthropathy with mild spinal melani l stenosis and mild bilateral neural foraminal stenosis. L5-S1: The disc is rounded posterior morphology without significant spinal canal stenosis. Facet join t arthropathy with mild to moderate bilateral neural foraminal stenosis. No significant spinal canal or neural foraminal stenosis in the remainder of the visualized levels. Other findings: None. IMPRESSION: 1. L3-L4 left foraminal disc extrusion which impresses upon the exiting and forming nerve. 2. Moderate disc degeneration with associated osteoarthritic changes worse in the lower lumbar spine with fixation hardware.
== END | disposition home or self-care (01) ==
LOC: RADMRIMAIN 17:06
PROVIDERS: ATTEND Orthopaedic Surgery Orthopaedic Surgery of the Spine
DX: M43.16 Spondylolisthesis, lumbar region (principal); M51.16 Intervertebral disc disorders with radiculopathy, lumbar region; M51.26 Other intervertebral disc displacement, lumbar region; M51.17 Intervertebral disc disorders with radiculopathy, lumbosacral region; M79.18 Myalgia, other site; R53.1 Weakness; Z98.1 Arthrodesis status; Z98.890 Other specified postprocedural states
CPT/HCPCS: 72158; A9585